=== PATIENT | male | born 2000 | race Caucasian/White ===

== ENCOUNTER 2022-01-13 10:51 | Emergency (ER) | payer OTHER ==
[~2022-01-13] VITALS: Ht 172.7 cm; Wt 86.2 kg
[2022-01-13 10:59] VITALS: BP 130/63
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
[2022-01-13] MEDS ORDERED: LIDOCAINE MPF 1% 10 MG/ML VIAL INJ ONE ×2 (11:10→12:40)
--- NOTE | 2022-01-13 11:12 | NUR ---
RAD AT BEDSIDE
--- NOTE | 2022-01-13 11:20 | NUR ---
PT [facility]
[2022-01-13 12:13] LABS: ANION GAP 13.7 (8-16); ASPARTATE AMINOTRANSFERASE 22 U/L (15-37); CARBON DIOXIDE 23.1 mmol/L (21-32); CHLORIDE 107 mmol/L (98-107); CREATININE 0.9 mg/dL (0.6-1.3); GFR ARICAN-AMERICAN 140 mL/min (>90); GLUCOSE 107 mg/dL (74-106); POTASSIUM 3.8 mmol/L (3.5-5.1); SODIUM SERUM 140 mmol/L (136-145); TOTAL BILIRUBIN 0.7 mg/dL (0.0-1.0); UREA NITROGEN, BLOOD 15 mg/dL (7-18)
--- NOTE | 2022-01-13 12:18 | NUR ---
PT GIVEN A URINAL
--- NOTE | 2022-01-13 12:55 | NUR ---
DR MOLINA AT BEDSIDE FOR PROCEDURE
--- NOTE | 2022-01-13 13:07 | NUR ---
DR VALLE ASKED ABOUT PT PEEING IN THE BATHROOM AND STANDING, SAID IT WAS OK. PT DENIES ANY DIZZINESS KRISTA, WAS ABLE TO AMBULATE TO THE BATHROOM WITH STEADY GAIT
[2022-01-13 13:10] LABS: HEMOGLOBIN 13.7 g/dL (12.0-18.0)
[2022-01-13 13:15] LABS: BASOPHILS % (AUTO) 0.2 % (0.0-2.0); HEMATOCRIT 40.9 % (36-52); LYMPHOCYTES # (AUTO) 1.3 K/uL (2.0-11.5); LYMPHOCYTES % (AUTO) 7.3 % (20.5-51.1); MEAN CORPUSCULAR HEMOGLOBIN 31 pg (27-31); MEAN CORPUSCULAR HGB CONC 34 g/dL (33-37); MEAN CORPUSCULAR VOLUME 91.3 fL (80-94); MONOCYTES # (AUTO) 1.5 K/uL (0.8-1.0); MONOCYTES % (AUTO) 8.4 % (1.7-9.3); NEUTROPHILS # (AUTO) 14.7 K/uL (1.8-7.7); NEUTROPHILS % (AUTO) 84.1 % (42.2-75.2); PLATELET COUNT (AUTO) 154 K/uL (140-450); RED BLOOD CELL COUNT(AUTO) 4.48 MIL/uL (4.20-6.10); RED CELL DISTRIBUTION WIDTH 13.6 % (11.6-13.7)
[2022-01-13 13:20] VITALS: BP 114/67
[2022-01-13 13:27] LABS: WHITE BLOOD COUNT (AUTO) 17.5 K/uL (4.5-11.0)
[2022-01-13 13:38] LABS: APPEARANCE,URINE CLEAR (CLEAR); BILIRUBIN,URINE NEGATIVE (NEGATIVE); BLOOD, URINE TRACE-I (NEGATIVE); COLOR,URINE YELLOW (YELLOW); LEUKOCYTE ESTERASE ,URINE NEGATIVE (NEGATIVE); NITRITE, URINE NEGATIVE (NEGATIVE); PH,URINE 6.5 (5.0-9.0); UGLUCOSE NEGATIVE (NEGATIVE)
[2022-01-13 13:53] LABS: BARBITURATE, URINE NEGATIVE ng/ml (NEG <=200); BENZODIAZEPINE, URINE NEGATIVE ng/mL (NEG <=200); CANNABINOID, URINE POSITIVE ng/mL (NEG <=50); COCAINE, URINE POSITIVE ng/mL (NEG <=300); OPIATE, URINE NEGATIVE ng/mL (NEG <=2000); PHENCYCLIDINE SCREEN,URINE NEGATIVE ng/mL (NEG <=25)
[2022-01-13] MEDS ORDERED: IBUP-2213 PO (14:17)
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
== END 2022-01-13 14:40 ==
LOC: MED 10:51
DX: S06.0X9A Concussion with loss of consciousness of unspecified duration, initial encounter (principal); S01.81XA Laceration without foreign body of other part of head, initial encounter; S39.91XA Unspecified injury of abdomen, initial encounter; V43.62XA Car passenger injured in collision with other type car in traffic accident, initial encounter; Y93.89 Activity, other specified; Y92.488 Other paved roadways as the place of occurrence of the external cause; Y99.8 Other external cause status
CPT/HCPCS: 12011; 36415; 70450; 71045; 71260; 72125; 73502; 74177; 80053; 80305; 81003; 84484; 85025; 93005; 99285; G0482; J2001; Q0092; Q9967